=== PATIENT | female | born 1985 | race Caucasian/White ===

== ENCOUNTER → 2023-02-11 | Outpatient (CLI) | payer MEDICAID ==
--- NOTE | 2023-02-11 15:34 | US ---
EXAMINATION TYPE: US thyroid st tissue head/neck DATE OF EXAM: 02/11/2023 COMPARISON: NONE CLINICAL INDICATION: Female, 37 years old with history of E03.8 HYPOTHYROIDISM; Hypothyroid GLAND SIZE: Right Lobe: 3.5 x 1.2 x 1.0 cm Overall Parenchyma: homogenous Left Lobe: 3.7 x 1.0 x 1.2 cm Overall Parenchyma: homogeneous Isthmus Thickness: 0.2 cm NODULES RIGHT: # of nodules measured on right: 0 LEFT: # of nodules measured on left: 0 ISTHMUS: # of nodules measured in the isthmus: 0 Bilateral neck scanned, no evidence of lymphadenopathy. Bilateral thyroid appeared wnl. IMPRESSION: Examination is within normal limits. 2017 ACR TI-RADS LEVEL: *Highest TI-RADS level nodule reported
== END | disposition home or self-care (01) ==
LOC: RADUSWWP 14:52
PROVIDERS: ATTEND Internal Medicine Endocrinology, Diabetes & Metabolism
DX: E03.8 Other specified hypothyroidism (principal)
CPT/HCPCS: 76536; 84443